=== PATIENT | male | born 1960 | race Caucasian/White ===

== ENCOUNTER 2022-01-01 07:48 | Emergency (ER) | payer OTHER ==
[2022-01-01] MEDS ORDERED: Bacitracin Oint 1 GM U/D Packet TOP ONE (08:15)
[2022-01-01] MEDS ORDERED: Lidocaine 1% with EPINEPHrine 1:100,000 50 ML MDV SUBCUT STA (08:15)
[2022-01-01] MEDS ORDERED: Diphtheria,Pertussis(Acell),Tetanus Vaccine 0.5 ML Syringe IM ONE (08:31)
== END 2022-01-01 09:00 | disposition home or self-care (01) ==
LOC: JP.ED 07:48
DX: S59.911A Unspecified injury of right forearm, initial encounter (principal); Z23 Encounter for immunization; W45.8XXA Other foreign body or object entering through skin, initial encounter
CPT/HCPCS: 90471; 90715; 99283